=== PATIENT | male | born 1955 | race Caucasian/White ===

== ENCOUNTER → 2023-07-19 | Outpatient (CLI) | payer SELFPAY, OTHER ==
--- NOTE | 2023-07-19 11:30 | CT_ITS ---
EXAM: CT LEFT LOWER EXTREMITY WITHOUT INTRAVENOUS CONTRAST CLINICAL INDICATION: templating for left TKA -- WILL CALL TECHNIQUE: Helically acquired images were obtained of the left lower extremity without intravenous contrast. 2-D reformats were performed by the technologist. CTDIvol = ( 18.55 ) mGy, DLP = ( 1482.94 ) mGycm This CT exam was performed using one or more of the following dose reduction techniques: automated exposure control, adjustment of the mA and/or kV according to patient size, and/or use of iterative reconstruction technique. COMPARISON: No relevant prior studies available. FINDINGS: BONES/JOINTS: Tricompartmental osteoarthrosis of the knee with nonunited fracture at the peripheral aspect of the lateral tibial plateau and osteochondral lesions seen on both sides of the medial femorotibial compartment. Preoperative planning study for total arthroplasty. Degenerative changes of the pelvis. Prominent plantar calcaneal enthesophyte and tiny posterior calcaneal enthesophyte. Moderate hip osteoarthrosis. No unusual lytic or sclerotic lesions of bone to the absence of any acute or healing fracture or malalignment. No significant ankle joint effusion. SOFT TISSUES: Large suprapatellar joint effusion, which appears complex with synovitis. Valera''s cyst identified with small calcific or ossific bodies. Fat-containing inguinal hernias bilaterally. No soft tissue swelling or gas. No radiopaque foreign body. Peripheral vascular calcifications. CT/Extremity Lower without Contra IMPRESSION: 1. Preoperative planning study for or total knee arthroplasty. 2. Tricompartmental osteoarthrosis of the knee with nonunited fracture at the peripheral aspect of the lateral tibial plateau and osteochondral lesions seen on both sides of the medial femorotibial compartment. 3. Large suprapatellar joint effusion, which appears complex with synovitis. Valera''s cyst identified with small calcific or ossific bodies Electronically Signed: Rick Watkins MD at 1:02 EST ,
== END | disposition home or self-care (01) ==
LOC: CT 11:18
PROVIDERS: PCP Family Medicine; Referring Provider Orthopaedic Surgery; Visit Provider Orthopaedic Surgery
DX: M17.12 Unilateral primary osteoarthritis, left knee (principal)
CPT/HCPCS: 73700

== ENCOUNTER 2023-07-30 13:32 | Observation (INO) | payer SELFPAY, OTHER ==
--- NOTE | 2023-07-19 11:17 | EKG12_ITS ---
Test Reason : PRE OP Blood Pressure : / mmHG Vent. Rate : 089 BPM Atrial Rate : 089 BPM P-R Int : 156 ms QRS Dur : 088 ms QT Int : 348 ms P-R-T Axes : 031 116 047 degrees QTc Int : 423 ms Normal sinus rhythm Normal ECG Confirmed by LARA ACUÑA, LISA ([id number]), editor in chief JACQUELYN YIN ([id number]) on 07/24/2023 12:20:01 PM Referred By: North Rush Confirmed By:LISA BERMUDEZ MD
[2023-07-19 12:08] LABS: Absolute Lymphocyte Count 1.83 X10^3/uL (0.83-4.51); Absolute Neutrophil Count 5.1 X10^3/uL (2.0-7.7); Basophil# 0.06 X10^3/uL; Basophil% 0.8 % (0-1); Eosinophil# 0.16 X10^3/uL; Eosinophils% 2.1 % (0-5); Hemoglobin 13.4 g/dL (13.0-16.5); Lymphocyte # 1.83 X10^3/ul (0.83-4.51); Mean Corp Hgb Conc 34.4 g/dL (32-36); Mean Corpuscular Hgb 32.1 pg (27.0-32.0); Mean Corpuscular Volume 93.3 fL (80-94); Mean Platelet Vol. 8.4 fl (6.2-12.0); Monocyte# 0.48 X10^3/uL; Monocyte% 6.3 % (0-10); NRBC Flagged by Analyzer 0 % (0-5); Neutrophil # 5.06 X10^3/uL (2.7-7.7); Neutrophil % 66.3 % (47-70); Platelet Count 261 K/mm3 (150-450); RBC Distribution Width CV 12.3 % (11.6-14.6); Red Blood Count 4.18 M/mm3 (4.6-6.2); White Blood Count 7.6 K/mm3 (4.4-11.0)
[2023-07-19 12:15] LABS: Prothrombin Time (Protime)PT. 12.9 SECONDS (11.7-14.9)
[2023-07-19 12:38] LABS: Anion Gap 6 (5-15); BUN 22 mg/dL (7-18); BUN/Creat Ratio 18.3 RATIO (10-20); Calcium,Total 8.6 mg/dL (8.5-10.1); Chloride 109 mmol/L (98-107); EST Glomerular Filtration Rate 64 mL/min (>60); Est Glom Filt Rate - Afr Amer 78 mL/min (>60); Glucose 170 mg/dL (74-106); Magnesium 2.3 mg/dL (1.6-2.6); Sodium Level 141 mmol/L (136-145)
[2023-07-19 12:59] LABS: Hemoglobin A1c 5.6 % (3.8-5.6)
[2023-07-20 05:07] LABS: Fructosamine 232 umol/L (0-285)
[2023-07-30] VITALS (10 sets, daily range): BP systolic 117–147; BP diastolic 76–102; PULSE 80–104; RESP 16–18; TEMP 36.5–36.9; O2SAT 90–100; BMI 34.4; BMI 38.4
--- NOTE | 2023-07-30 | KNEE_PTH ---
PATIENT: MOSES BUTCHER LOC: [facility] U#:[id number] AGE/SX: 67/M ROOM: [place] RE07/30/[address]: Dr. North Rush DO : 1955 BED: 1 DIS: 07/31/2023 SPEC #: [id number] RECD: 07/30/23 14:15 STATUS: FLACO TATE #: [id number] LYNN: 07/30/23 00:[address]: North Rush DEPT: SURGICAL PATHOLOGY RECD BY: Cuba Brothers ENTERED: 07/31/23 07:31 SP TYPE: TOTAL KNEE OTHR DR: Dr. Sudheer Taylor MD Tissues: Knee, NOS Procedures: Decalcification bone/plaque Surgery Specimen Level IV HEADER OPERATION: ERAS, left total knee replacement robotic arm assisted PRE-OP DIAGNOSIS: Osteoarthritis of left knee TISSUE SUBMITTED: Left knee patella and debrided bone and tissue and bone resection tissue MICROSCOPIC DIAGNOSIS Left knee bone and soft tissue, total knee replacement/resection: Pieces of bone with degenerative osteoarthritic changes. Fragments of dense fibroconnective tissue, fibrocartilaginous tissue and reactive synovial tissue. EMILY:urmila 08/05/2023 MICROSCOPIC DESCRIPTION Slides are reviewed. GROSS DESCRIPTION Received is one container designated bone and soft tissue left knee. The specimen consists of multiple fragments of galaviz-yellow bone measuring in aggregate 16.0 x 7.0 x 2.0 cm. Also in the specimen container are multiple fragments of yellow-white soft tissue measuring in aggregate 6.0 x 5.0 x 1.3 cm. A number of bony fragments contain articular surfaces consistent with tibial plateau and femoral condyle and displaying prominent osteophyte formation, eburnation and bone erosion. Food Preservation Scientist sections are submitted in two cassettes as follows: 1 - soft tissue, 2 - bone after decalcification. / AM:urmila 07/31/2023 TC:5 CPT: 30437, 69567
[2023-07-30] MEDS: Lactated Ringers 1,000 ML 15 ML IV (08:51)
[2023-07-30] MEDS: Magnesium 1 GM over 15 mins IV (08:52)
[2023-07-30] MEDS: Scopolamine 1mg/72hr Patch 1 PATCH TD (08:52)
[2023-07-30] MEDS: Gabapentin 600 MG Tablet PO (08:53)
[2023-07-30] MEDS: Celecoxib 200 MG Capsule 400 MG PO (08:54)
[2023-07-30] MEDS: Acetaminophen 500 MG Tablet 1000 MG PO ×3 (08:54→22:01)
[2023-07-30 09:30] LABS: Bedside Glucose 132 mg/dL (74-106)
--- NOTE | 2023-07-30 09:57 | HP.PCM_ITS ---
History and Physical Date of Admission: 07/30/23 MOSES BUTCHER??67??M??1955 ? Allergy/Adv: No Known Allergies Close BMS Internal Correspondence (Scanned) 07/24/23 14:44 Electrocardiogram (Signed) [facility] [place] - 07/24/23 12:22 Orthopedics Visit (Signed) Yaritza Gerber - 07/19/23 10:39 Orthopedics Visit (Signed) North Rush - 06/26/23 09:29 External Correspondence (Scanned) 06/18/23 10:34 BMS Internal Correspondence (Scanned) 06/06/23 14:04 External Correspondence (Scanned) 06/06/23 08:54 External Correspondence (Scanned) 05/16/23 09:00 External Correspondence (Scanned) 05/16/23 08:59 Orthopedics Visit (Signed) North Rush - 05/15/23 10:11 BMS HIPAA (Scanned) 05/15/23 08:11 Add?Addendum [facility] [address] [place] [address] OFFICE VISIT Date of Service: 06/26/23 MR#: [id number] Acct: [id number] Name: MOSES BUTCHER Rep #: [id number] : 1955 Provider: Dr. North Rush DO Age/Sex: 67/M [place] [facility] [place] Status: Signed Intake Vital Signs 05/15/2308:26 Height 5 ft 2 in Weight: 190 lb BMI 34.7 Intake Visit Reasons: LEFT KNEE Is patient in pain?: Yes Allergies No Known Allergies Allergy (Unverified 06/26/23 08:06) Medications alprazolam 0.25 mg tablet (Xanax) 0.25 mg PO TID PRN 05/15/23 [History Confirmed 06/26/23] aspirin 81 mg tablet,delayed release (Adult Low Dose Aspirin) 81 mg PO DAILY 05/15/23 [History Confirmed 06/26/23] citalopram 20 mg tablet 20 mg PO DAILY 05/15/23 [History Confirmed 06/26/23] losartan 100 mg tablet 100 mg PO DAILY 05/15/23 [History Confirmed 06/26/23] rosuvastatin 5 mg tablet 5 mg PO QHS 05/15/23 [History Confirmed 06/26/23] sildenafil 50 mg tablet 50 mg PO DAILY PRN 05/15/23 [History Confirmed 06/26/23] trazodone 50 mg tablet 50 mg PO QHS PRN 05/15/23 [History Confirmed 06/26/23] antiarthritic combination no.2 900 mg tablet (glucosamine-chondroitin) mg PO 06/26/23 [History Confirmed 06/26/23] ibuprofen 200 mg tablet 200 mg PO Q6H PRN 06/26/23 [History Confirmed 06/26/23] PFSH Medical History Heart disease Hypertension Surgical History History of heart bypass surgery History of open heart surgery HPI LEFT KNEE Details: Parts of this documentation were recorded by a scribe, this documentation accurately reflects the service provided and the decisions made by me, Dr. North Rush, DO 06/26/23 0742. MOSES BUTCHER is a 67 year old M here today for a followup on his left knee. Patient had a left knee steroid injection on 05/15/23. Patient states that he continues to have knee pain and denies any relief from the injection. Patient complains of pain over his anterior medial knee. Patient has painful popping and clicking. He takes aleve or ibuprofen or naproxen for pain which is slightly helpful. Patient has a knee brace which rubbed his knee and made him sore, and he also tried an FENG wrap which was slightly helpful. Ortho Exam General General: Yes no acute distress Neurologic: Yes alert and Yes oriented x3 Psychologic: Yes reasonable and appropriate Left Knee Skin/Wound: Yes CDI, No ecchymosis, No erythema and Yes swelling Homans Sign: No 2+: Effusion Knee ROM: Yes ROM-Extension -20 to 0 Examination: Yes med jt line tenderness, No Lat jt line tenderness, Yes Lisa's Test and No TTP Pes Anserine Stability: NML: Anterior Drawer, NML: Posterior Drawer, NML: Valgus 0, NML: Valgus 30, NML: Varus 0 and NML: Varus 30 Apprehension with Lateral Translation: No Patella Grind: No KNEE: mild edema to lower leg fixed varus deformity no joint effusion TTP over anterior medial knee click and pain over medial knee with lateral jeremy Head: Normocephalic Atraumatic Chest: symmetrical rise, non-labored breathing, no audible wheeze Abdomen: no guarding, non-rigid Supplemental Info Supplemental Info: 05/15/2023 there is a old fracture of the medial tibial plateau that did not completely unite. there is moderate to severe arthrosis developed in this area 08/03/2022 MRI on disc left knee: Complex tear medial meniscus , impacted fracture of the medial tibial plateau with a extensive bone marrow edema of the proximal tibial metaphysis, report reads posterior capsular thickening of the lateral meniscus which is consistent with a tear. Also tear of the lateral superior meniscal finger ligament abnormal signal in the popliteal muscle possible tear abnormal signal in the medial patellofemoral retinaculum and MCL consistent with tear 6 x 2 mm loose body. Coding Level of Care Code Off vis,est,level 4 Diagnoses Post-traumatic osteoarthritis of left knee M17.32 Osteoarthritis type: post-traumatic Assessment and Plan Assessment and Plan (1) Osteoarthritis of left knee: Status: Acute Qualifiers: Osteoarthritis type: post-traumatic Qualified Code(s): M17.32 - Unilateral post-traumatic osteoarthritis, left knee Plan Spent 45 minutes with the patient. Spoke with the patient about developing post traumatic arthritis from his previous injury. Explained that his fracture has since developed fibrous union, his pain is from the osteoarthritis that has developed. Spoke with the patient about his options and the risks/benefits- viscosupplementation injections, physical therapy, different bracing, oral anti- inflammatories with tylenol, glucosamine chondrin, partial arthroplasty vs a total knee arthroplasty. Explained if he proceeds with the surgery, he should limit his impact activities and he will likely not want to kneel until around a year post op. Spoke with the patient about having swelling due to synovitis from osteoarthritis. If patient wants to proceed with surgery, he will need a CT scan to template for the makoplasty. Patient will not be able to proceed with surgery for 3 months after an injection. Spoke with the patient about the surgery procedure, risks, anesthesia, and recovery. He may have a mechanical feel. He will need to do physical therapy post op to prevent stiffness. Patient will need any dental procedures prior to surgery to prevent infection. Spoke with the patient about the risk of blood clots post op, he will wear compression hose and be on a blood thinner. He will likely have numbness over his lateral knee. Patient will likely be better by 3 months post op but will continue to improve until 2 years post op. Spoke with the patient about the iovera procedure to help decrease narcotic use post op. Patient would like to proceed with surgery ROMAINE. Patient will be done as an inpatient surgery due to his cardiac history. Follow up for iovera or 2 week post op or sooner if pain, swelling, numbness or associated symptoms, or concerns develop. All questions answered. Patient in agreement of plan. Risks, benefits and alternatives of surgery reviewed including but not limited to bleeding, infection, nerve, artery and/or tissue damage, fracture, VTE, mechanical feel of the knee, continued pain, stiffness and expected post- operative course. He does wish to proceed with total knee arthroplasty He does have a broken tooth we will need to obtain a dental clearance which could potentially postpone surgery. He will also need cardiac clearance Tentative surgery date July 30, 2023 06/26/23 0929 <Electronically signed by North Rush DO> Date North Rush DO Cosigner Signature: Date (if applicable) I have examined the patient and the H&P has been reviewed. There are no clinical changes since date of exam.
[2023-07-30] MEDS: Cefazolin 2 GM in 0.9% Normal Saline (100mL Bag) 100 ML IV (10:53)
[2023-07-30] MEDS: TXA 1000mg in NS100 100ml (IVPB at Incision) 660 MG IV (11:03)
[2023-07-30] MEDS: dexAMETHasone 10 MG/ML Vial IV (11:13)
[2023-07-30] MEDS: TXA 1000mg in NS100 100ml (IVPB at Closure) 660 MG IV (11:53)
[2023-07-30] MEDS: 0.9% Normal Saline (Pres. free 10 ML Vial (12:35)
[2023-07-30] MEDS: dexAMETHasone 4 MG/ML Vial (12:35)
[2023-07-30] MEDS: Bupivacaine 0.5% PF 10 ML VIAL (12:35)
[2023-07-30] MEDS: Epinephrine (1 mg/ml) 1 MG/ML VIAL (12:35)
--- NOTE | 2023-07-30 13:34 | OP.PCM_ITS ---
Operative Report Date of Procedure: 07/30/23 Preoperative diagnosis: Left knee DJD Postoperative diagnosis: Same Procedure: Left total knee arthroplasty CT guided Robotic Assisted Implant: Yajaira triathlon press fit, femoral component size 4, tibial baseplate size 4, asymmetric patella size 32, polyethylene X3 size 9 CS Anesthesia: Spinal with adductor canal block Complications: None Condition: Stable to PACU Estimated blood loss: 175 cc Geophysical Prospector Dung [place]. My physician bilingual legal assistant was a vital part of this case. He was important in appropriate retraction during the case, and protection of soft tissues during procedure. His intimate knowledge of the case and my steps aided in safe and expedient completion of the procedure as well as appropriate position of the extremity during the case. He was also vital in assisting with closure under my direct supervision. Indication for procedure: This is a 67-year-old male with long standing degenerative joint disease of the knee who has failed conservative treatment and wished to proceed with elective total knee arthroplasty. He did have previous medial tibial plateau fracture which was never healed with bone. He did have preoperative flexion contracture. risk benefits and alternatives were reviewed including; risk of bleeding, infection, nerve artery and tissue damage, continued pain, postoperative stiffness, venous thromboembolism, need for postoperative rehabilitation, mechanical feel to the knee, and expected postoperative course. The pre- operative CT and templating was performed with component sizing. Procedure: The patient was met in the preoperative holding area. The operative extremity was identified by both patient and physician and was marked. Patient was met by anesthesia. An adductor canal block was placed by anesthesia postoperatively the patient was brought back to the operating room on a wheeled cart and transferred to the operating table in the supine position. Anesthesia was started. A well-padded tourniquet was placed on the operative extremity. The patient was prepped and draped in the usual sterile fashion. A timeout was called to ensure the proper patient procedure and extremity were being contemplated. An esmarch was used to exsanguinate the extremity. The tourniquet was inflated. A 10 blade scalpel was used to make a midline incision down through the skin and subcutaneous tissue. Skin retractors placed. Bovie and Aquamantis were used to perform meticulous hemostasis. full-thickness flaps were elevated medial and lateral along the joint capsule. A deep blade scalpel was used to perform a medial parapatellar arthrotomy. The knee was brought to full extension. A bovie was used to release the soft tissues off the most proximal aspect of the medial tibial plateau, a three-quarter inch curved osteotome was also used in this process. The infrapatellar fat pad was excised. The suprapatellar fat pad was excised partially anteriorolateraly and portion the anterioromedial pad was elevated from the femur. At this point our intra- articular femoral array was placed at a 45 degree angle proximal and posterior to the medial epicondyle. femoral checkpoint was placed at this time. Our tibial array was placed greater than 1 hands breath below the incision at a 20 degree angle stab incisions were made with a 15 blade scalpel and pins were placed and attached to the tibial array , tibial checkpoint was placed in the proximal tibial metaphysis. Tourniquet was let down. At this point registra tion guan were taken throughout the knee . Once the knee was registered we then tensioned the medial and lateral ligaments in extension and 90 degrees of flexion. We then used these numbers to adjust our components within parameters to balance the knee in both flexion and extension once this was done on our monitor we then proceeded with using the robotic arm to make our tibial plateau cut, anterior and posterior chamfer and distal femur cuts. we removed the cut fragments with the use of a bovie and Dena, we did use a lamina milling machinist to insure we visualized and removed all posterior osteophytes and at this time also used the Aquamantis on the posterior joint capsule. we then trialed and achieved the desired plan with a well-balanced knee. we used the green probe to james the corresponding tibial rotation based on our CT template. Lug holes were drilled in the femur the tibia preparation was completed with the appropriate sized base plate pinned based on previous rotation james. An appropriate sized fin punch was used on the tibia and 4 corner drill was used for the press fit component and the patella was prepared by first using a caliper to ensure sufficient bone stock and a patellar reamer to remove the desired amount of bone. lug holes drilled for an asymmetric poly. We then brought the knee through range of motion with excellent patellar tracking. We thoroughly irrigated the knee. Trial components were removed a posterior capsular injection was preformed with our standard cocktail. In addition the aqua Mantis was also used to aid in hemostasis. Betadine rinse was allowed to sit and washed out completely. Components were press-fit into place. Vjcept rinse was then used followed by several more liters of irrigation after it was allowed to sit. The joint capsule was closed with #1 Ethibond zsoasy-ny-baege's followed by Vicryl in the subcutaneous tissues with art in the skin. Arrays and checkpoints were removed prior to closure all counts were correct stab incisions were closed with a staple standard dressing in the form of Mepilex AG for the main incision and a small Mepilex over the pin holes. Thigh-high VERONICA hose applied over top of dressing. Patient tolerated the procedure well and was directed to PACU in stable condition . There were no intraoperative complications.
--- NOTE | 2023-07-30 13:45 | RAD_ITS ---
STUDY: X-RAY - LEFT KNEE REASON FOR EXAM: Male, 67 years old. Post op -- AP and Lateral xray of operative knee in PACU TECHNIQUE: 2 view(s) of the knee. COMPARISON: Comparison is made with prior study May 15, 2023. FINDINGS: Normal visualized distal femur. Normal visualized proximal tibia and fibula. Normal proximal tibiofibular articulation. The patient is status post total knee replacement. There is good alignment. Postoperative soft tissue changes. RAD/Knee 1 or 2 Views IMPRESSION: Status post total knee replacement. There is good alignment. Postoperative soft tissue changes. Electronically Signed: Fabio Maldonado MD at 14:31 EST ,
[2023-07-30] MEDS: Lactated Ringers 1,000 ML 125 ML IV (13:57)
[2023-07-30] MEDS: Cefazolin 1 GM/50 ML BAG IV ×2 (13:57→22:01)
--- NOTE | 2023-07-30 15:15 | CPS ---
Pt did have a mild audible wheeze but this RT auscultated lungs and didn't hear wheezing but did hear it over throat. Informed RN of findings.
[2023-07-30] MEDS: oxyCODONE 5 MG Tablet PO (15:26)
[2023-07-30] MEDS: 0.9% Normal Saline (1000mL) 1,000 ML 125 ML IV (15:31)
[2023-07-30] MEDS: Atorvastatin Calcium 10 MG Tablet PO (22:01)
[2023-07-30] MEDS: Senna/Docusate Sodium 1 Tablet 2 TABLET PO (22:02)
[2023-07-31] MEDS: Ketorolac 15 MG/ML Vial IV (02:15)
[2023-07-31 02:50] VITALS: BP 139/75; PULSE 61; RESP 16; TEMP 36.8; O2SAT 98; BMI 38.4
[2023-07-31] MEDS: Acetaminophen 500 MG Tablet 1000 MG PO (05:56)
[2023-07-31] MEDS: Cefazolin 1 GM/50 ML BAG IV (05:57)
[2023-07-31] MEDS: APIXABAN 2.5 MG TABLET (WCH) PO (05:59)
[2023-07-31 06:12] VITALS: BP 131/86; PULSE 81; RESP 16; TEMP 36.7; O2SAT 94; BMI 38.4
[2023-07-31] MEDS: oxyCODONE 5 MG Tablet PO ×2 (07:30→12:14)
[2023-07-31 07:38] VITALS: BP 141/93; PULSE 84; RESP 18; TEMP 36.6; O2SAT 94
[2023-07-31 08:02] LABS: Hemoglobin 9.4 g/dL (13.0-16.5); Mean Corp Hgb Conc 32.4 g/dL (32-36); Mean Corpuscular Hgb 31.2 pg (27.0-32.0); Mean Corpuscular Volume 96.3 fL (80-94); Mean Platelet Vol. 8.9 fl (6.2-12.0); Platelet Count 205 K/mm3 (150-450); RBC Distribution Width CV 11.9 % (11.6-14.6); RBC Distribution Width SD 41.5 fl (35.1-43.9); Red Blood Count 3.01 M/mm3 (4.6-6.2); White Blood Count 14.9 K/mm3 (4.4-11.0)
[2023-07-31 08:16] VITALS: O2SAT 95
[2023-07-31] MEDS: Paroxetine 20 MG Tablet 40 MG PO (09:23)
[2023-07-31] MEDS: Senna/Docusate Sodium 1 Tablet 2 TABLET PO (09:23)
[2023-07-31] MEDS: OLANZapine 2.5 MG Tablet PO (09:23)
[2023-07-31] MEDS: Losartan Potassium 100 MG Tablet PO (09:23)
[2023-07-31] MEDS: Mirtazapine 30 MG Tablet PO (09:23)
[2023-07-31 09:42] VITALS: BMI 38.4
[2023-07-31 09:57] VITALS: O2SAT 93
[2023-07-31 10:17] LABS: Anion Gap 6 (5-15); BUN 23 mg/dL (7-18); BUN/Creat Ratio 20.7 RATIO (10-20); Calcium,Total 8.3 mg/dL (8.5-10.1); Chloride 106 mmol/L (98-107); Creatinine, Serum 1.11 mg/dL (0.70-1.30); EST Glomerular Filtration Rate 70 mL/min (>60); Est Glom Filt Rate - Afr Amer 85 mL/min (>60); Estimated Creatinine Clearance 52.69 ml/min; Glucose 152 mg/dL (74-106); Potassium 4.8 mmol/L (3.5-5.1); Sodium Level 136 mmol/L (136-145)
--- NOTE | 2023-07-31 11:17 | PN.ORTHO_ITS ---
Subjective Subjective seen And examined. Denies any fevers chills nausea vomiting shortness of breath or chest pain. Passing gas and urinating without difficulty. He is anxious for discharge home Objective Data Objective Data Vital Signs: Vital Signs Temp Pulse Resp BP Pulse Ox O2 Del Method O2 Flow Rate 97.8 F 84 18 141/93 H 93 Nasal Cannula 2 07/31/23 07:38 07/31/23 07:38 07/31/23 07:38 07/31/23 07:38 07/31/23 09:57 07/31/23 09:57 07/31/23 09:57 Oxygen Flow Rate (L/min) 2 Oxygen Delivery Method Nasal Cannula Weight: 217 lb Body Mass Index (BMI) 38.4 Intake & Output: Intake and Output for Last 24 Hours 07/29/23 07/30/23 07/31/23 23:59 23:59 23:59 Intake Total 3532 / 3532 1050 / 1050 Output Total 4 / 4 Balance 3532 / 3532 1046 / 1046 Lab / Micro Data 07/31/23 06:44 07/31/23 06:44 Labs: Laboratory Results - last 24 hr 07/31/23 06:44: WBC 14.9 H, RBC 3.01 L, Hgb 9.4 L, Hct 29.0 L, MCV 96.3 H, MCH 31.2, MCHC 32.4, RDW Std Deviation 41.5, RDW Coeff of Virgen 11.9, Plt Count 205, MPV 8.9, Sodium 136, Potassium 4.8, Chloride 106, Carbon Dioxide 24.0, Anion Gap 6, BUN 23 H, Creatinine 1.11, Estim Creat Clear Calc 52.69, Est GFR (MDRD) Af Amer 85, Est GFR (MDRD) Non-Af 70, BUN/Creatinine Ratio 20.7 H, Glucose 152 H, C alcium 8.3 L Micro: Microbiology 07/19/23 11:39 Swab (Method) Nasal Screen MRSA/MSSA - Final Radiography Diagnostic Testing: Radiology Impression Knee X-Ray 07/30/23 13:45 IMPRESSION: Status post total knee replacement. There is good alignment. Postoperative soft tissue changes. Electronically Signed: Fabio Maldonado MD at 14:31 EST , Physical Exam Const alert and oriented x3 General Appearance: cooperative Extremity Extremity Narrative: Left knee dressing clean dry intact compartments soft neurovascular intact EHL tibialis anterior gastrocsoleus intact and station light touch palpable pulses Assessment & Plan Assessment/Plan (1) S/P total knee arthroplasty: QUALIFIERS: Laterality: left Qualified Code(s): Z96.652 - Presence of left artificial knee joint PLAN: Plan Postop day #1 left total knee arthroplasty PT OT weightbearing as tolerated DVT prophylaxis Arnoldo molina SCDs I would like patient to be seen by physical therapy this morning and make sure he is safe for discharge otherwise he looks good to go we will have things set up for discharge home today. He should start outpatient physical therapy imme diately follow-up in the office in 2 weeks
--- NOTE | 2023-07-31 11:19 | CASEMGMT ---
RACHELL NUNN Assessment: Face to Face with pt for initial transition planning/care coordination assessment. RACHELL NUNN introduced self and role at [facility], pt voices understanding and consents to assessment. Pt is A&O x4 and answers all questions appropriately at this time. Pt's is also present in the room and she provides some of the below information. Care providers, pharmacy, and demographics verified/updated. Admitting Dx: Left Total Knee Replacement Robotic PCP: Brandon Specialists: Everardo (Silk Trimmer) Preferred Pharmacy:[facility] Retail Insurance: [employer] ([facility] Package Plan) Prescription Benefit: No LNOK:Sherry Tee () Living Will/HCPOA: pt. states he does have a LW but is unsure about a HCPOA. Pt. and decline to receive information on ADs. Living Arrangements: Pt lives with his in a 1 story home w/ basement. FFSU. No steps to enter. Pt. is mostly I in ADLs and IADLs. Pt.'s states that recently she has been helping pt. some with things like putting on his socks, but states this is just related to the pain in his knee he had been experiencing. Transportation: [facility] Of Public [facility] (pt. states they plan to use the [facility] van for transport home today) DME: cane, crutches, grab bars, walker. Declines to receive information on medical alert systems. Pt's states they are able to get a raised toilet seat if pt. ends up needing one. HHC/SNF: Denies previous SNF but states he had HHC in 2018. Pt states no concerns with going home at time of dc, and his states they already have HHC PT set up for tomorrow through [facility]. Pt states no further concerns/needs. CM to follow. Advised pt to ask CM if any further question/concerns/needs arise, voices understanding. Pt Goal: Home with HHC Plan: Home with HHC, family support and follow-up plans in place.
--- NOTE | 2023-07-31 11:20 | DS.PCM_ITS ---
Providers Date of Admission: 07/30/23 Primary Care Physician: Dr. Sudheer Taylor MD Reason For Visit: Left Total Knee Replacement Robotic Diagnosis Discharge Diagnosis (1) S/P total knee arthroplasty: Status: Acute Code(s): Z96.659 - Presence of unspecified artificial knee joint Qualifiers: Laterality: left Qualified Code(s): Z96.652 - Presence of left artificial knee joint Plan Postop day #1 left total knee arthroplasty PT OT weightbearing as tolerated DVT prophylaxis Arnoldo molina SCDs I would like patient to be seen by physical therapy this morning and make sure he is safe for discharge otherwise he looks good to go we will have things set up for discharge home today. He should start outpatient physical therapy immediately follow-up in the office in 2 weeks Medications at Discharge Home Medications aspirin 81 mg tablet,delayed release (Adult Low Dose Aspirin) 81 mg PO DAILY 05/15/23 losartan 100 mg tablet 100 mg PO DAILY 05/15/23 rosuvastatin 5 mg tablet 5 mg PO QHS 05/15/23 antiarthritic combination no.2 900 mg tablet (glucosamine-chondroitin) 900 mg PO DAILY SUPPLEMENT' 06/26/23 ibuprofen 200 mg tablet 200 mg PO Q6H PRN pain 06/26/23 mirtazapine 30 mg tablet (Remeron) 30 mg PO DAILY 07/18/23 olanzapine 2.5 mg tablet (Zyprexa) 2.5 mg PO DAILY 07/18/23 paroxetine HCl 40 mg tablet (Paxil) 40 mg PO DAILY 07/18/23 acetaminophen 500 mg tablet 1,000 mg (2 x 500 mg) PO Q6H PRN #100 tabs 07/31/23 apixaban 2.5 mg tablet (Eliquis) 2.5 mg PO BID #28 tabs 07/31/23 oxycodone 5 mg tablet 5 - 10 mg (1 - 2 x 5 mg) PO Q4H PRN pain 7 days #60 tabs 07/31/23 Hospital Course Operations total knee replacement Summary of Care Provided Hospital Course: Who has long history of degenerative joint disease to the knee who has failed conservative treatment and wished to undergo elective total knee arthroplasty. Patient underwent the aformentioned procedure on the admission date without any intraoperative complications. Patient did receive pre-and postoperative antibiotics which were discontinued within 23 hours postoperatively. Patient did receive [spinal anesthesia as well as an adductor canal block p ostoperatively]. pain was controlled with IV and transition to p.o. pain medication Patient will be discharged home with oxycodone and will continue Tylenol as well. Patient had minimal intraoperative blood loss and 2gm tranexamic acid was administered there was no need for postoperative blood lu sfusion Patients vital signs remained stable. Patient was started on both mechanical and chemical DVT per prophylaxis postoperatively in the form of SCDs VERONICA hose and [Eliquis 2.5 mg twice daily for which she will continue for 2 additional weeks post hospital discharge]. thigh high veronica hose placed over top of the meplix silver dressing. This should be removed 72 hrs post operatively and showering begun daily at that time with warm water and antibacterial soap. not to submerge for 3 weeks. To change dressing daily after first dressing change. Patient will follow-up in the office in 2 weeks. No intrahospital complications. Weight / BMI Weight Weight: 217 lb Body Mass Index (BMI) 38.4 ABG / Lab / Microbiology Data 07/31/23 06:44 07/31/23 06:44 Laboratory: Laboratory Results - last 24 hr 07/31/23 06:44: WBC 14.9 H, RBC 3.01 L, Hgb 9.4 L, Hct 29.0 L, MCV 96.3 H, MCH 31.2, MCHC 32.4, RDW Std Deviation 41.5, RDW Coeff of Virgen 11.9, Plt Count 205, MPV 8.9, Sodium 136, Potassium 4.8, Chloride 106, Carbon Dioxide 24.0, Anion Gap 6, BUN 23 H, Creatinine 1.11, Estim Creat Clear Calc 52.69, Est GFR (MDRD) Af Amer 85, Est GFR (MDRD) Non-Af 70, BUN/Creatinine Ratio 20.7 H, Glucose 152 H, Calcium 8.3 L Microbiology: Microbiology 07/19/23 11:39 Swab (Method) Nasal Screen MRSA/MSSA - Final Radiography Diagnostic Testing: Radiology Impression Knee X-Ray 07/30/23 13:45 IMPRESSION: Status post total knee replacement. There is good alignment. Postoperative soft tissue changes. Electronically Signed: Fabio Maldonado MD at 14:31 EST , D/C Instructions Discharge Diet: No restrictions Weight Bearing Status: Weight bearing as tolerated Keep extremity elevated above heart level: Operative Extremity Additional Dressing/Incision Instructions: Ice and elevate lower extremities 2 weeks while not ambulating. Ambulation is encouraged. Weight bearing as t olerated. Use assistive devise for stability. Encourage FULL knee extension and flexion 1 time EVERY time you get up and down and MULTIPLE times per day. No showering until 72 hours after surgery. Begin showering postop day #3. Remove the dressing prior to shower and gently wash with warm water and antibacterial soap then pat dry and place abdominal pad (or plain gauze) and VERONICA hose over top. This is to be done daily. Do not submerge for 3 weeks. If not showering daily after the initial 72 hours then you must clean incision and change dressing daily. Do not allow animals near the incision area. Keep clean. Follow anti-coagulation recommendations as prescribed. Do not take any NSAIDs while on blood thinner. Do not take any additional narcotic pain medication other than what was prescribed on your surgery day without discussing with physician. Narcotic medication can be addictive. Do not drink alcohol while taking narcotics. Supplement narcotic prescription with acetaminophen 1000 mg 4 times a day. Start physical therapy. If you are not currently scheduled for physical therapy or you are unsure of appointment time please call office [facility] to arrange. Call Dr. Rush with any concerns. Please Follow Up With: North Rush DO When: 2 weeks Meaningful Use Info Meaningful Use Diagnoses (Choose all that apply): None applicable Discharge Plan Admission Admit Date/Time: 07/30/23 13:32 Primary Reason for Your Visit: Left total knee arthroplasty Attending Provider: North Rush Primary Care Provider: Sudheer Taylor Discharge Orders/Prescriptions Prescriptions: New acetaminophen [acetaminophen] 500 mg tablet 1,000 mg PO Q6H PRN Qty: 100 0RF Eliquis 2.5 mg tablet 2.5 mg PO BID Qty: 28 0RF oxycodone 5 mg tablet 5 - 10 mg PO Q4H PRN (Reason: pain) 7 Days Qty: 60 0RF Continued aspirin [Adult Low Dose Aspirin] 81 mg tablet,delayed release (DR/EC) 81 mg PO DAILY rosuvastatin 5 mg tablet 5 mg PO QHS losartan 100 mg tablet 100 mg PO DAILY glucosamine-chondroitin 900 mg tablet 900 mg PO DAILY paroxetine HCl [Paxil] 40 mg tablet 40 mg PO DAILY olanzapine [Zyprexa] 2.5 mg tablet 2.5 mg PO DAILY mirtazapine [Remeron] 30 mg tablet 30 mg PO DAILY Held ibuprofen 200 mg tablet 200 mg PO Q6H PRN (Reason: pain) Hold Instructions: Resume on 08/15/23. Disposition Disposition (needs filled in before D/C Order can be placed): Home, Self Care
--- NOTE | 2023-07-31 12:23 | PHA.DC.MC.R ---
Pharmacy [facility] has performed discharge medication reconciliation and counseling for this patient. 1. ACETAMINOPHEN 1000MG PO Q6H PRN PAIN 2. APIXABAN 2.5MG PO BID X 14 DAYS (ibuprofen hold until completion of apixaban) 3. OXYCODONE 5-10MG PO Q4H PRN PAIN X 7 DAYS The patient's discharge medication list was reviewed for discrepancies and discrepancies were resolved. The patient was counseled on the following discharge medications and changes in medications for homegoing were reviewed. The Reason for Use, instructions for use, and potential side effects were reviewed for all new medications. The patient's questions regarding all of their medications were answered. The patient was able to verbally demonstrate an understanding of their discharge medications. Patient counseled by pharmacy technician program directorPato. Medications at Discharge Home Medications aspirin 81 mg tablet,delayed release (Adult Low Dose Aspirin) 81 mg PO DAILY 05/15/23 losartan 100 mg tablet 100 mg PO DAILY 05/15/23 rosuvastatin 5 mg tablet 5 mg PO QHS 05/15/23 antiarthritic combination no.2 900 mg tablet (glucosamine-chondroitin) 900 mg PO DAILY SUPPLEMENT' 06/26/23 ibuprofen 200 mg tablet 200 mg PO Q6H PRN pain 06/26/23 mirtazapine 30 mg tablet (Remeron) 30 mg PO DAILY 07/18/23 olanzapine 2.5 mg tablet (Zyprexa) 2.5 mg PO DAILY 07/18/23 paroxetine HCl 40 mg tablet (Paxil) 40 mg PO DAILY 07/18/23 acetaminophen 500 mg tablet 1,000 mg (2 x 500 mg) PO Q6H PRN #100 tabs 07/31/23 apixaban 2.5 mg tablet (Eliquis) 2.5 mg PO BID #28 tabs 07/31/23 oxycodone 5 mg tablet 5 - 10 mg (1 - 2 x 5 mg) PO Q4H PRN pain 7 days #60 tabs 07/31/23
--- NOTE | 2023-07-31 12:38 | CASEMGMT ---
TC to [facility] pharmacy, spoke with Mily who states pt cost is zero for eliquis and they have already delivered the meds to the room.
--- NOTE | 2023-07-31 13:00 | CASEMGMT ---
Pt. has order for discharge. RACHELL NUNN in to pt. room to discuss needs at discharge. Pt. denies having any needs at this time. Pt. denies having any additional questions or concerns at this time other than he asks to speak again with his nurse about his pancho hose. RACHELL NUNN told pt. I will inform his nurse of this. RACHELL NUNN also informed pt. that there is no cost for his Eliquis. Pt. voices understanding. RACHELL NUNN then informed pt's nurse that pt. has some questions for her about his pancho hose.
== END 2023-07-31 12:50 | disposition home health service (06) ==
LOC: SDC 14:20 → MS3 15:53
PROVIDERS: Admitting Provider Orthopaedic Surgery; PCP Family Medicine; Referring Provider Orthopaedic Surgery; Visit Provider Orthopaedic Surgery
PROC: 0SRD0JZ Replacement of Left Knee Joint with Synthetic Substitute, Open Approach (ICD-10-PCS; CPT 27447; principal; 2023-07-30 10:30)
DX: M17.32 Unilateral post-traumatic osteoarthritis, left knee (principal); I10 Essential (primary) hypertension; Z79.899 Other long term (current) drug therapy; Z79.82 Long term (current) use of aspirin; I25.10 Atherosclerotic heart disease of native coronary artery without angina pectoris; F32.A Depression, unspecified; E78.00 Pure hypercholesterolemia, unspecified
CPT/HCPCS: 27447; 01402; S2900; 64447; 36415; 73560; 80048; 82962; 82985; 83036; 83735; 85025; 85027; 85610; 85730; 86850; 86900; 86901; 87081; 88305; 88311; 93005; 94668; 96361; 96365; 96366; 96376; 97162; 97166; 97530; 97535; 99221; 99252; C1776; J7030; J7120; G0378; G0463; J2405; J3475; J3490